=== PATIENT | male | born 1940 | race Caucasian/White ===

== ENCOUNTER → 2018-09-07 | Outpatient (CLI) | payer MEDICARE, BC | LOC: DL.CLIN 11:00 | CPT/HCPCS: 99213 ==

== ENCOUNTER 2018-09-09 09:52 | Day surgery (SDC) | payer MEDICARE, BC ==
[2018-09-09] MEDS ORDERED: Sodium Chloride 0.9% 10 ML Syringe IV ONE (09:53)
[2018-09-09] MEDS ORDERED: Midazolam 1 MG/ML 2 ML SDV IV ONE (09:53)
[2018-09-09] MEDS ORDERED: Dexamethasone 4 MG/ML SDV IV ONE (09:53)
[2018-09-09] MEDS ORDERED: Phenylephrine 10% Ophth Soln 5 ML Bot EYELF ONE (10:23)
[2018-09-09] MEDS ORDERED: Dilation Soln 1 EA EACH EYELF ONE (10:23)
[2018-09-09] MEDS ORDERED: Moxifloxacin 0.5% Ophth Soln 3 ML Bottle EYELF ONE (10:23)
[2018-09-09] MEDS ORDERED: Proparacaine 0.5% Ophth Soln 15 ML Bottle EYELF ONE (10:23)
[2018-09-09] MEDS ORDERED: Povidone-Iodine 5% Sterile Ophth Soln 30 ML Bottle EYELF ONE ×2 (10:23→10:51)
[2018-09-09] MEDS ORDERED: Timolol Maleate 0.5% Ophth Soln 5 ML Bottle EYELF ONE (10:23)
[2018-09-09] MEDS ORDERED: Sodium Chloride 0.9% 10 ML Syringe FLUSH SCH (10:30)
[2018-09-09] MEDS ORDERED: Tetracaine HCl/PF 0.5% 4 ML Bottle EYELF ONE (10:50)
[2018-09-09] MEDS ORDERED: Lidocaine 1% 30 ML SDV ONE (10:50)
[2018-09-09] MEDS ORDERED: Apraclonidine 0.5% Ophth Soln 5 ML Bot EYELF ONE (10:51)
[2018-09-09] MEDS ORDERED: Balanced Salt Solution Ophth Irrig 500 ML Bottle IOCULAR ONE (10:51)
[2018-09-09] MEDS ORDERED: Diclofenac Sodium 0.1% Ophth Soln 5 ML Bottle EYELF ONE (10:51)
[2018-09-09] MEDS ORDERED: Chondroitin Sulfate/Hyaluronate Sodium Ophth Inj 0.75 ML Syringe EYELF ONE (10:51)
[2018-09-09] MEDS ORDERED: Dexamethasone/Neomycin/Polymyxin B Ophth Oint 3.5 GM Tube EYELF ONE (10:51)
[2018-09-09] MEDS ORDERED: Vancomycin 500 MG SDV EYELF ONE (10:52)
--- NOTE | 2018-09-09 13:36 | EKG ---
09/09/2018 - GUERO ABRAMS - This 12-lead EKG shows atrial fibrillation with a controlled ventricular rate of 69. There is poor R-wave progression to the level of V5. No acute ST-T wave changes. There is no previous EKG found in [facility] or [facility]. [facility] /[id number]
--- NOTE | 2018-09-09 15:15 | OR ---
DATE: 09/09/2018 PREOPERATIVE DIAGNOSIS: Visually significant mixed cataract, left eye. POSTOPERATIVE DIAGNOSIS: Visually significant mixed cataract, left eye. PROCEDURE: Extracapsular cataract extraction with intraocular lens implant, left eye. ANESTHESIA: Topical/local MAC. COMPLICATIONS: None. INDICATION: Mr. Olivera was seen in the clinic. He has complained of difficulty judging distances and a slow change in vision in both eyes. 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 I explained options, offered cataract surgery, and I explained risks including the potential for infection, retinal detachment, loss of vision, and need for additional surgery amongst others. He has requested a monofocal implant. He understands that his visual potential will be limited by retinal health. He is symptomatic and motivated to proceed. OPERATIVE DESCRIPTION: After informed consent was obtained and the risks, benefits, and alternatives were explained, the patient was brought to the operative suite and topical anesthesia was administered. The patient was then prepped and draped in the sterile fashion and attention was placed on the left eye. A sterile lid speculum was placed into the left eye to allow operative exposure. A full-thickness paracentesis was made in the temporal portion of the operative eye. Preservative-free lidocaine 0.1 mL was injected into the anterior chamber followed by viscoelastic. A full-thickness corneal incision was then made into the anterior chamber. A bent needle cystotome was used to create a small holly in the anterior capsule. The capsulorrhexis forceps was then used to create a 360-degree curvilinear capsulorrhexis. The nucleus was then removed using a phacoemulsification handpiece and the remaining cortical material was then removed with irrigation and aspiration handpiece. Following removal of the cortical material, the capsular bag was then inspected and noted to be free of any holes or tears. Viscoelastic was then injected into the capsular bag and the intraocular lens was inserted into the capsular bag. The viscoelastic material was then removed from both the anterior and posterior chambers and from behind the IOL. The lens and capsular bag were then reinspected. The IOL was well centered and the capsular bag intact. The wound and paracentesis sites were inspected and hydrated with balanced saline solution. Both were found to be self-sealing. The intraocular pressure was assessed digitally and found to be within normal range. A good red reflex was noted at the completion of the procedure. No complications occurred during the operation. At the completion of the procedure, [employer], Voltaren, and Iopidine drops were placed into the operative eye. A sterile eye shield was placed over the operative eye and the patient was transported to the postoperative recovery area having tolerated the procedure well. Postoperative instructions were given along with a postoperative appointment. The patient was advised to call with any questions or concerns. [facility] /[id number]
== END 2018-09-09 12:00 | disposition home or self-care (01) ==
LOC: DL.SDS 09:52
PROVIDERS: ATTEND Ophthalmology
DX: H26.8 Other specified cataract (principal); F03.90 Unspecified dementia, unspecified severity, without behavioral disturbance, psychotic disturbance, mood disturbance, and anxiety; E78.5 Hyperlipidemia, unspecified; E78.00 Pure hypercholesterolemia, unspecified; J45.909 Unspecified asthma, uncomplicated; I21.9 Acute myocardial infarction, unspecified; Z79.82 Long term (current) use of aspirin; Z79.52 Long term (current) use of systemic steroids; Z79.899 Other long term (current) drug therapy; I48.91 Unspecified atrial fibrillation
CPT/HCPCS: 00142; 66984; 93005; 99213; A9270; J1100; J2001; J2250; J3370; V2632

== ENCOUNTER 2018-10-14 06:45 | Day surgery (SDC) | payer MEDICARE, BC ==
[~2018-10-14 06:45] MED LIST: Proparacaine 0.5% Ophth Soln 15 ML Bottle ONE
[2018-10-14] MEDS ORDERED: Sodium Chloride 0.9% 10 ML Syringe IV ONE (06:46)
[2018-10-14] MEDS ORDERED: Midazolam 1 MG/ML 2 ML SDV IV ONE (06:46)
[2018-10-14] MEDS ORDERED: Dexamethasone 4 MG/ML SDV IV ONE (06:46)
[2018-10-14] MEDS: Proparacaine 0.5% Ophth Soln 15 ML Bottle EYERT ONE (07:22)
[2018-10-14] MEDS: Povidone-Iodine 5% Sterile Ophth Soln 30 ML Bottle EYERT ONE ×2 (07:23→08:13)
[2018-10-14] MEDS: Moxifloxacin 0.5% Ophth Soln 3 ML Bottle EYERT ONE (07:23)
[2018-10-14] MEDS: Phenylephrine 10% Ophth Soln 5 ML Bot EYERT ONE (07:25)
[2018-10-14] MEDS: Timolol Maleate 0.5% Ophth Soln 5 ML Bottle EYERT ONE (07:26)
[2018-10-14] MEDS: Cataract Ophth Solution EYERT ONE (07:27)
[2018-10-14] MEDS: Lidocaine 1% 30 ML SDV ONE (08:09)
[2018-10-14] MEDS: Tetracaine HCl/PF 0.5% 4 ML Bottle EYERT ONE (08:12)
[2018-10-14] MEDS: Apraclonidine 0.5% Ophth Soln 5 ML Bot EYERT ONE (08:15)
[2018-10-14] MEDS: Diclofenac Sodium 0.1% Ophth Soln 5 ML Bottle EYERT ONE (08:16)
[2018-10-14] MEDS: Dexamethasone/Neomycin/Polymyxin B Ophth Oint 3.5 GM Tube EYERT ONE (08:16)
[2018-10-14] MEDS: Balanced Salt Solution Plus Ophth Irrig 500 ML Bottle IOCULAR ONE (08:17)
[2018-10-14] MEDS: Vancomycin 500 MG SDV EYERT ONE (08:17)
[2018-10-14] MEDS: Chondroitin Sulfate/Hyaluronate Sodium Ophth Inj 0.5 ML Syringe EYERT ONE (08:17)
[2018-10-14] MEDS ORDERED: Ondansetron 4 MG/2 ML SDV IVPUSH PRN (08:30)
[2018-10-14] MEDS ORDERED: Phenylephrine 10% Ophth Soln 5 ML Bot EYERT PRN (08:30)
[2018-10-14] MEDS ORDERED: Sodium Chloride 0.9% 10 ML Syringe FLUSH PRN (08:30)
[2018-10-14] MEDS ORDERED: Acetaminophen 325 MG Tab PO PRN (08:30)
--- NOTE | 2018-10-14 11:45 | OR ---
DATE: 10/14/2018 PREOPERATIVE DIAGNOSIS: Visually significant mixed cataract, right eye. POSTOPERATIVE DIAGNOSIS: Visually significant mixed cataract, right eye. PROCEDURE: Extracapsular cataract extraction with intraocular lens implant, right eye. ANESTHESIA: Topical/local MAC. COMPLICATIONS: None. INDICATION: Mr. Olivera was seen in the clinic. He is unhappy with his vision and his examination revealed visually significant mixed cataract. I explained options, offered cataract surgery, and I explained risks including the potential for infection, retinal detachment, loss of vision, need for additional surgery, amongst others. We discussed implant options. He has requested a toric implant. He understands that he may still require glasses for some activities. OPERATIVE DESCRIPTION: After informed consent was obtained and the risks, benefits, and alternatives were explained, the patient was brought to the operative suite and topical anesthesia was administered. The patient was then prepped and draped in the sterile fashion and attention was placed on the right eye. A sterile lid speculum was placed into the right eye to allow operative exposure. A full-thickness paracentesis was made in the temporal portion of the operative eye. Preservative-free lidocaine 0.1 mL was injected into the anterior chamber followed by viscoelastic. A full-thickness corneal incision was then made into the anterior chamber. A bent needle cystotome was used to create a small holly in the anterior capsule. The capsulorrhexis forceps was then used to create a 360-degree curvilinear capsulorrhexis. The nucleus was then removed using a phacoemulsification handpiece and the remaining cortical material was then removed with irrigation and aspiration handpiece. Following removal of the cortical material, the capsular bag was then inspected and noted to be free of any holes or tears. Viscoelastic was then injected into the capsular bag and the intraocular lens was inserted into the capsular bag. The implant was oriented to correspond with preoperative corneal bocanegra made with the patient in the upright position. The viscoelastic material was then removed from both the anterior and posterior chambers and from behind the IOL. The lens and capsular bag were then reinspected. The IOL was well centered and the capsular bag intact. The wound and paracentesis sites were inspected and hydrated with balanced saline solution. Both were found to be self-sealing. The intraocular pressure was assessed digitally and found to be within normal range. A good red reflex was noted at the completion of the procedure. No complications occurred during the operation. At the completion of the procedure, Maxitrol, Voltaren, and Iopidine drops were placed into the operative eye. A sterile eye shield was placed over the operative eye and the patient was transported to the postoperative recovery area having tolerated the procedure well. Postoperative instructions were given along with a postoperative appointment. The patient was advised to call with any questions or concerns. [facility] /[id number]
== END 2018-10-14 09:22 | disposition home or self-care (01) ==
LOC: DL.SDS 06:45
PROVIDERS: ATTEND Ophthalmology
DX: H26.8 Other specified cataract (principal); I25.2 Old myocardial infarction; E78.00 Pure hypercholesterolemia, unspecified; J45.909 Unspecified asthma, uncomplicated; F03.90 Unspecified dementia, unspecified severity, without behavioral disturbance, psychotic disturbance, mood disturbance, and anxiety; R39.12 Poor urinary stream; Z98.42 Cataract extraction status, left eye; Z96.1 Presence of intraocular lens; Z79.51 Long term (current) use of inhaled steroids; Z79.82 Long term (current) use of aspirin; Z79.899 Other long term (current) drug therapy
CPT/HCPCS: A9270-GY; J1100; J2001; J2250; J3370

== ENCOUNTER 2020-11-06 20:46 | Emergency (ER) | payer MEDICARE, BC ==
[2020-11-06] MEDS ORDERED: Sodium Chloride 0.9% 1,000 ML IV ONE (21:29)
--- NOTE | 2020-11-06 22:30 | EDM.PDOC ---
ED HPI GENERAL MEDICAL PROBLEM - General Chief Complaint: Upper Extremity Injury/Pain Stated Complaint: HAS ADVANCED DIMENTIA / FELL TWICE TODAY Time Seen by Provider: 11/06/20 21:15 Source of Information: Reports: Patient, Family, RN, RN Notes Reviewed History Limitations: Reports: Altered Mental Status (Advanced dementia) - History of Present Illness INITIAL COMMENTS - FREE TEXT/NARRATIVE: Patient is an 80-year-old male who presents to ER in a wheelchair with son and . Ambulance was called to the residence as the patient had fallen and could not get up, family unable to get him up. states the patient's got a history of advanced dementia. She states he has had a history of urinary tract infections as well. States the last few days his mobilization has been decreased, weak and shuffling. She feels he has been more confused lately as well. Patient states he was not in bed with her this morning and she could not find him, finding him on the floor next to the bed. He told her that he like to sleep on the floor, states she thinks he fell and could not get up. Tonight the patient fell getting out of his chair, initially was complaining of right shoulder pain and family was unable to get him stood up without having pain. EMS arrived helped get the patient up, and family declined transport and stated they would bring him in by private vehicle. Arrived per private vehicle patient denies any pain anywhere. denies any nausea, vomiting, diarrhea, fevers or chills, chest pains or shortness of breath. Onset: Today - Related Data Allergies Allergy/AdvReac Type Severity Reaction Status Date / Time No Known Allergies Allergy Verified 11/06/20 20:54 Home Meds: Home Meds Aspirin [Ecotrin EC] 81 mg PO DAILY 09/08/18 [History] Fluticasone Propionate [Flonase] 1 spray INH ASDIRECTED 09/08/18 [History] Memantine HCl 10 mg PO BID 09/08/18 [History] Montelukast [Singulair] 10 mg PO DAILY 09/08/18 [History] Multivitamin [Multivitamins] 1 tab PO DAILY 09/08/18 [History] [id number] [Cataract Opthalmic Solution] 1 drop EYEBOTH QID 09/08/18 [History] Past Medical History HEENT History: Reports: Allergic Rhinitis, Cataract Cardiovascular History: Reports: High Cholesterol, Hypertension, DE Respiratory History: Reports: Asthma Gastrointestinal History: Reports: None Genitourinary History: Reports: Prostate Disorder Musculoskeletal History: Reports: Arthritis Neurological History: Reports: Other (See Below) Other Neuro History: DEMENTIA PER H&p Psychiatric History: Reports: None Endocrine/Metabolic History: Reports: None Hematologic History: Reports: None Immunologic History: Reports: None Oncologic (Cancer) History: Reports: None Dermatologic History: Reports: None - Infectious Disease History Other Infectious Disease History: uNKNOWN - Past Surgical History Head Surgeries/Procedures: Reports: None HEENT Surgical History: Reports: None, Cataract Surgery Cardiovascular Surgical History: Reports: None GI Surgical History: Reports: None Social & Family History - Family History Cardiac: Reports: DE, Other (See Below) Other Cardiac Family History: AORTIC ANEURYSM Neurological: Reports: CVA Endocrine/Metabolic: Reports: Diabetes Mellitus, Type 3c Hematologic: Reports: Other (See Below) Other Hematologic Family History: LEUKEMIA Oncologic: Reports: Bone - Tobacco Use Tobacco Use Status *Q: Never Tobacco User Second Hand Smoke Exposure: No - Caffeine Use Caffeine Use: Reports: None Caffeine Use Comment: RARE - Recreational Drug Use Recreational Drug Use: No Review of Systems - Review of Systems Review Of Systems: Comprehensive ROS is negative, except as noted in HPI. ED EXAM, GENERAL - Physical Exam Exam: See Below Exam Limited By: Altered Mental Status General Appearance: Alert, WD/WN, No Apparent Distress Eye Exam: Bilateral Eye: EOMI, Normal Inspection Ears: Normal External Exam, Hearing Grossly Normal Nose: Normal Inspection Throat/Mouth: Normal Inspection, Normal Voice, No Airway Compromise Head: Atraumatic, Normocephalic Neck: Normal Inspection, Limited Range of Motion Respiratory/Chest: No Respiratory Distress, Lungs Clear, Normal Breath Sounds, No Accessory Muscle Use, Chest Non-Tender, Decreased Breath Sounds Cardiovascular: Normal Peripheral Pulses, No Edema, No Gallop, No JVD, No Murmur, No Rub, Irregularly Irregular Peripheral Pulses: 2+: Radial (L), Radial (R) GI/Abdominal: Normal Bowel Sounds, Soft, Non-Tender (Male) Exam: Deferred Rectal (Males) Exam: Deferred Back Exam: Normal Inspection, Decreased Range of Motion Extremities: Normal Inspection, Normal Range of Motion, Non-Tender, No Pedal Edema, Normal Capillary Refill Neurological: Alert, No Motor/Sensory Deficits Psychiatric: Normal Affect, Normal Mood Skin Exam: Warm, Dry, Intact, Normal Color, No Rash Lymphatic: No Adenopathy #1 Interpretation EKG Date: 11/06/20 Time: 22:18 Rhythm: A-Fib Rate (Beats/Min): 85 P-Wave: Variable QRS: Wide ST-T: Normal QT: Normal Comparison: No Change Course - Vital Signs Last Recorded V/S: Last Vital Signs Temp 97.8 F 11/06/20 23:14 Pulse 86 11/06/20 23:14 Resp 16 11/06/20 23:14 BP 118/91 H 11/06/20 23:14 Pulse Ox 95 11/06/20 23:14 - Orders/Labs/Meds Orders: Active Orders 24 hr Category Date Time Status EKG Documentation Completion [RC] STAT Care 11/06/20 21:22 Active Cervical Spine wo Cont [CT] Urgent Exams 11/06/20 21:24 Ordered Head wo Cont [CT] Urgent Exams 11/06/20 21:24 Ordered Shoulder Comp Rt [CR] Urgent Exams 11/06/20 21:23 Taken Labs: Laboratory Tests 11/06/20 11/06/20 11/06/20 Range/Units 21:25 22:00 22:00 WBC 14.0 H (5.0-10.0) 10^3/uL RBC 4.83 (4.6-6.2) 10^6/uL Hgb 15.3 (14.0-18.0) g/dL Hct 45.0 (40.0-54.0) % MCV 93.2 D (80-100) fL MCH 31.7 (27.0-34.0) pg MCHC 34.0 (33.0-35.0) g/dL Plt Count 118 L (150-450) 10^3/uL Neut % (Auto) 45.0 (42.2-75.2) % Lymph % (Auto) 47.8 (20.5-50.1) % [place] % (Auto) 6.2 (2-8) % Eos % (Auto) 0.9 L (1.0-3.0) % Baso % (Auto) 0.1 (0.0-1.0) % PT 11.5 (9.0-12.0) SEC INR 1.1 (0.9-1.2) Sodium 135 L (136-145) mmol/L Potassium 4.2 (3.5-5.1) mmol/L Chloride 99 (98-107) mmol/L Carbon Dioxide 24 (21-32) mmol/L Anion Gap 16.2 H (7-13) mEq/L BUN 22 H (7-18) mg/dL Creatinine 1.33 H (0.70-1.30) mg/dL Est Cr Clr Drug Dosing TNP Estimated GFR (MDRD) 51 BUN/Creatinine Ratio 16.5 (No establ ref range) Glucose 113 H (70-99) mg/dL Calcium 9.1 (8.5-10.1) mg/dL Total Bilirubin 1.9 H (0.2-1.0) mg/dL AST 24 (15-37) U/L ALT 21 (16-63) U/L Alkaline Phosphatase 85 (46-116) U/L Troponin I High Sens 19 (<=76) pg/mL Total Protein 7.4 (6.4-8.2) g/dL Albumin 3.9 (3.4-5.0) g/dL Globulin 3.5 Albumin/Globulin Ratio 1.1 Urine Color (YELLOW) Urine Appearance (CLEAR) Urine pH (5.0-9.0) Ur Specific [place] (1.005-1.030) Urine Protein (NEGATIVE) Urine Glucose (UA) (NEGATIVE) Urine Ketones (NEGATIVE) Urine Occult Blood (NEGATIVE) Urine Nitrite (NEGATIVE) Urine Bilirubin (NEGATIVE) Urine Urobilinogen (0.2-1.0) mg/dL Ur Leukocyte Esterase (NEGATIVE) Urine RBC /HPF Urine WBC (0-5/HPF) /HPF Ur Epithelial Cells (NOT SEEN) /HPF Urine Bacteria (0-FEW/HPF) /HPF Urine Mucus (NOT SEEN) /LPF 11/06/20 Range/Units 23:27 WBC (5.0-10.0) 10^3/uL RBC (4.6-6.2) 10^6/uL Hgb (14.0-18.0) g/dL Hct (40.0-54.0) % MCV (80-100) fL MCH (27.0-34.0) pg MCHC (33.0-35.0) g/dL Plt Count (150-450) 10^3/uL Neut % (Auto) (42.2-75.2) % Lymph % (Auto) (20.5-50.1) % [place] % (Auto) (2-8) % Eos % (Auto) (1.0-3.0) % Baso % (Auto) (0.0-1.0) % PT (9.0-12.0) SEC INR (0.9-1.2) Sodium (136-145) mmol/L Potassium (3.5-5.1) mmol/L Chloride (98-107) mmol/L Carbon Dioxide (21-32) mmol/L Anion Gap (7-13) mEq/L BUN (7-18) mg/dL Creatinine (0.70-1.30) mg/dL Est Cr Clr Drug Dosing Estimated GFR (MDRD) BUN/Creatinine Ratio (No establ ref range) Glucose (70-99) mg/dL Calcium (8.5-10.1) mg/dL Total Bilirubin (0.2-1.0) mg/dL AST (15-37) U/L ALT (16-63) U/L Alkaline Phosphatase (46-116) U/L Troponin I High Sens (<=76) pg/mL Total Protein (6.4-8.2) g/dL Albumin (3.4-5.0) g/dL Globulin Albumin/Globulin Ratio Urine Color Dark yellow (YELLOW) Urine Appearance Slightly cloudy (CLEAR) Urine pH 6.5 (5.0-9.0) Ur Specific [place] >= 1.030 (1.005-1.030) Urine Protein Negative (NEGATIVE) Urine Glucose (UA) Negative (NEGATIVE) Urine Ketones Negative (NEGATIVE) Urine Occult Blood Trace-intact H (NEGATIVE) Urine Nitrite Negative (NEGATIVE) Urine Bilirubin Negative (NEGATIVE) Urine Urobilinogen 0.2 (0.2-1.0) mg/dL Ur Leukocyte Esterase Negative (NEGATIVE) Urine RBC 5-10 H /HPF Urine WBC 10-20 H (0-5/HPF) /HPF Ur Epithelial Cells Moderate H (NOT SEEN) /HPF Urine Bacteria Many H (0-FEW/HPF) /HPF Urine Mucus Many H (NOT SEEN) /LPF Meds: Medications Discontinued Medications Generic Name Dose Route Start Last Admin Trade Name Freq PRN Reason Stop Dose Admin Sodium Chloride 1,000 mls @ 500 mls/hr 11/06/20 21:29 11/06/20 22:10 Normal Saline IV 11/06/20 23:28 500 mls/hr .BOLUS ONE Administration - Radiology Interpretation Free Text/Narrative:: Head CT wo contrast: PROCEDURE INFORMATION: Exam: CT Head Without Contrast Exam date and time: 11/06/2020 9:37 PM Age: 80 years old Clinical indication: Other: Advanced dementia, falls TECHNIQUE: Imaging protocol: Computed tomography of the head without contrast. Radiation optimization: All CT scans at this facility use at least one of these dose optimization techniques: automated exposure control; mA and/or kV adjustment per patient size (includes targeted exams where dose is matched to clinical indication); or iterative reconstr uction. COMPARISON: CT HEAD 09/17/2012 2:05 AM FINDINGS: Brain: Moderate periventricular and subcortical white matter hypoattenuation compatible with chronic small vessel ischemia. Cerebral ventricles: Ventricular enlargement is moderate and increased from comparison in 2013. However, it is fairly commensurate with expansion of other subarachnoid spaces head may be related to volume loss. Paranasal sinuses: Visualized sinuses are unremarkable. No fluid levels. Mastoid air cells: Visualized mastoid air cells are well aerated. Bones/joints: Unremarkable. No acute fracture. Soft tissues: Unremarkable. IMPRESSION: No evidence of acute intracranial pathology. Thank you for allowing us to participate in the care of your patient. Dictated and Authenticated by: Miguel Campbell MD 11/06/2020 11:06 PM Central Time ([place] & [place]) CSpine CT wo contrast: PROCEDURE INFORMATION: Exam: CT Cervical Spine Without Contrast Exam date and time: 11/06/2020 9:37 PM Age: 80 years old Clinical indication: Neck pain; Additional info: Advanced dementia, falls TECHNIQUE: Imaging protocol: Computed tomography images of the cervical spine without contrast. Radiation optimization: All CT scans at this facility use at least one of these dose optimization techniques: automated exposure control; mA and/or kV adjustment per patient size (includes targeted exams where dose is matched to clinical indication); or iterative reconstruction. COMPARISON: CT HEAD 09/17/2012 2:05 AM FINDINGS: Bones/joints: Mild osteopenia. No evidence of fracture. No evidence of malalignment. Discs/Spinal canal/Neural foramina: Mild multilevel degenerative changes are seen. A subtle lucency mid dens is favored to be related to degenerative arthritis at the atlantodental interval. Lungs: Lung apices are normal. Soft tissues: Unremarkable. Other findings: Slight motion artifact on the exam IMPRESSION: No evidence of acute osseous injury. Thank you for allowing us to participate in the care of your patient. Dictated and Authenticated by: Miguel Campbell MD 11/06/2020 11:11 PM Central Time ([place] & [place]) Right shoulder xray: PROCEDURE INFORMATION: Exam: XR Right Shoulder Exam date and time: 11/06/2020 9:50 PM Age: 80 years old Clinical indication: Pain; Shoulder; Right; Additional info: Fall TECHNIQUE: Imaging protocol: XR Right shoulder. Views: 2 or more views. COMPARISON: No relevant prior studies available. FINDINGS: Bones/joints: There is some irregularity and lucency in the inferior glenoid. This may be degenerative, but a nondisplaced fracture is not excluded. No malalignment. Mild degenerative changes in the AC joint. Soft tissues: Normal. IMPRESSION: Mild irregularity and lucency in the inferior glenoid could potentially represent an acute osseous injury. Thank you for allowing us to participate in the care of your patient. Dictated and Authenticated by: Miguel Campbell MD 11/06/2020 11:23 PM Central Time ([place] & [place]) See rad report Departure - Departure Time of Disposition: 23:53 Disposition: Home, Self-Care 01 Condition: Fair Clinical Impression: Glenoid fracture of shoulder Qualifiers: Encounter type: initial encounter Fracture type: closed Laterality: right Qualified Code(s): S42.141A - Displaced fracture of glenoid cavity of scapula, right shoulder, initial encounter for closed fracture Fall at home Qualifiers: Encounter type: initial encounter Qualified Code(s): W19.XXXA - Unspecified fall, initial encounter - Discharge Information *PRESCRIPTION DRUG MONITORING PROGRAM REVIEWED*: No *COPY OF PRESCRIPTION DRUG MONITORING REPORT IN PATIENT CONTRERAS: No Instructions: How To Use a Sling, [id number], Shoulder Pain, [id number] Forms: ED Department Discharge Additional Instructions: Wear sling during the day when up and around Follow-up with orthopedic surgeon, call tomorrow to make an appointment for a possible nondisplaced fracture of the inferior glenoid Return to the ER with any worsening of symptoms Follow up with your primary care provider Sepsis Event Note (ED) - Evaluation Sepsis Screening Result: No Definite Risk - Focused Exam Vital Signs: Vital Signs Temp Pulse Resp BP Pulse Ox 11/06/20 23:14 97.8 F 86 16 118/91 H 95 11/06/20 21:02 97.9 F 97 18 110/69 95 - My Orders Last 24 Hours: My Active Orders 11/06/20 21:22 EKG Documentation Completion [RC] STAT 11/06/20 21:23 Shoulder Comp Rt [CR] Urgent 11/06/20 21:24 Cervical Spine wo Cont [CT] Urgent Head wo Cont [CT] Urgent - Assessment/Plan Last 24 Hours: My Active Orders 11/06/20 21:22 EKG Documentation Completion [RC] STAT 11/06/20 21:23 Shoulder Comp Rt [CR] Urgent 11/06/20 21:24 Cervical Spine wo Cont [CT] Urgent Head wo Cont [CT] Urgent
[2020-11-06 22:31] LABS: ANION GAP 16.2 mEq/L (7-13); CHLORIDE,CL 99 mmol/L (98-107); SODIUM,NA 135 mmol/L (136-145)
--- NOTE | 2020-11-07 11:08 | CT ---
PROCEDURE INFORMATION: Exam: CT Head Without Contrast Exam date and time: 11/06/2020 9:37 PM Age: 80 years old Clinical indication: Other: Advanced dementia, falls TECHNIQUE: Imaging protocol: Computed tomography of the head without contrast. Radiation optimization: All CT scans at this facility use at least one of these dose optimization techniques: automated exposure control; mA and/or kV adjustment per patient size (includes targeted exams where dose is matched to clinical indication); or iterative reconstruction. COMPARISON: CT HEAD 09/17/2012 2:05 AM FINDINGS: Brain: Moderate periventricular and subcortical white matter hypoattenuation compatible with chronic small vessel ischemia. Cerebral ventricles: Ventricular enlargement is moderate and increased from comparison in 2013. However, it is fairly commensurate with expansion of other subarachnoid spaces head may be related to volume loss. Paranasal sinuses: Visualized sinuses are unremarkable. No fluid levels. Mastoid air cells: Visualized mastoid air cells are well aerated. Bones/joints: Unremarkable. No acute fracture. Soft tissues: Unremarkable. IMPRESSION: No evidence of acute intracranial pathology.
--- NOTE | 2020-11-07 11:08 | CR ---
PROCEDURE INFORMATION: Exam: XR Right Shoulder Exam date and time: 11/06/2020 9:50 PM Age: 80 years old Clinical indication: Pain; Shoulder; Right; Additional info: Fall TECHNIQUE: Imaging protocol: XR Right shoulder. Views: 2 or more views. COMPARISON: No relevant prior studies available. FINDINGS: Bones/joints: There is some irregularity and lucency in the inferior glenoid. This may be degenerative, but a nondisplaced fracture is not excluded. No malalignment. Mild degenerative changes in the AC joint. Soft tissues: Normal. IMPRESSION: Mild irregularity and lucency in the inferior glenoid could potentially represent an acute osseous injury.
--- NOTE | 2020-11-07 11:08 | CT ---
PROCEDURE INFORMATION: Exam: CT Cervical Spine Without Contrast Exam date and time: 11/06/2020 9:37 PM Age: 80 years old Clinical indication: Neck pain; Additional info: Advanced dementia, falls TECHNIQUE: Imaging protocol: Computed tomography images of the cervical spine without contrast. Radiation optimization: All CT scans at this facility use at least one of these dose optimization techniques: automated exposure control; mA and/or kV adjustment per patient size (includes targeted exams where dose is matched to clinical indication); or iterative reconstruction. COMPARISON: CT HEAD 09/17/2012 2:05 AM FINDINGS: Bones/joints: Mild osteopenia. No evidence of fracture. No evidence of malalignment. Discs/Spinal canal/Neural foramina: Mild multilevel degenerative changes are seen. A subtle lucency mid dens is favored to be related to degenerative arthritis at the atlantodental interval. Lungs: Lung apices are normal. Soft tissues: Unremarkable. Other findings: Slight motion artifact on the exam IMPRESSION: No evidence of acute osseous injury.
== END 2020-11-07 00:01 | disposition home or self-care (01) ==
LOC: DL.ED 20:46
DX: S42.141A Displaced fracture of glenoid cavity of scapula, right shoulder, initial encounter for closed fracture (principal); I48.91 Unspecified atrial fibrillation; I10 Essential (primary) hypertension; I25.2 Old myocardial infarction; J45.909 Unspecified asthma, uncomplicated; M19.90 Unspecified osteoarthritis, unspecified site; F03.90 Unspecified dementia, unspecified severity, without behavioral disturbance, psychotic disturbance, mood disturbance, and anxiety; Z79.82 Long term (current) use of aspirin; Z79.899 Other long term (current) drug therapy; W07.XXXA Fall from chair, initial encounter
CPT/HCPCS: 36415; 70450; 72125; 73030-RT; 80053; 81001; 84484; 85025; 85610; 93005; 99284-25; J7030

== ENCOUNTER 2021-01-03 07:14 | Emergency (ER) | payer MEDICARE, BC ==
--- NOTE | 2021-01-03 07:36 | EDM.PDOC ---
ED HPI GENERAL MEDICAL PROBLEM - General Stated Complaint: FELL ON BACK OF HEAD Time Seen by Provider: 01/03/21 07:33 Source of Information: Reports: Patient, Family History Limitations: Reports: No Limitations - History of Present Illness INITIAL COMMENTS - FREE TEXT/NARRATIVE: 80 y/o m rolled out of bed this morning and hit his head on the night stand. Pt c/o laceration to the back of head. He is with his who reports pt has dementia and is acting like himself. Denies LINDER, CTLS pain, cp, back pn, db, abd pn, pelvic pn, extremity pn, fever, cough, chills, drugs, etoh. Onset: Today, Sudden Duration: Hour(s): Location: Reports: Head - Related Data Allergies Allergy/AdvReac Type Severity Reaction Status Date / Time No Known Allergies Allergy Verified 11/06/20 20:54 Home Meds: Home Meds Aspirin [Ecotrin EC] 81 mg PO DAILY 09/08/18 [History] Fluticasone Propionate [Flonase] 1 spray INH ASDIRECTED 09/08/18 [History] Memantine HCl 10 mg PO BID 09/08/18 [History] Montelukast [Singulair] 10 mg PO DAILY 09/08/18 [History] Multivitamin [Multivitamins] 1 tab PO DAILY 09/08/18 [History] [id number] [Cataract Opthalmic Solution] 1 drop EYEBOTH QID 09/08/18 [History] Past Medical History HEENT History: Reports: Allergic Rhinitis, Cataract Cardiovascular History: Reports: High Cholesterol, Hypertension, [place] Respiratory History: Reports: Asthma Gastrointestinal History: Reports: None Genitourinary History: Reports: Prostate Disorder Musculoskeletal History: Reports: Arthritis Neurological History: Reports: Other (See Below) Other Neuro History: DEMENTIA PER H&p Psychiatric History: Reports: None Endocrine/Metabolic History: Reports: None Hematologic History: Reports: None Immunologic History: Reports: None Oncologic (Cancer) History: Reports: None Dermatologic History: Reports: None - Infectious Disease History Other Infectious Disease History: uNKNOWN - Past Surgical History Head Surgeries/Procedures: Reports: None HEENT Surgical History: Reports: None, Cataract Surgery Cardiovascular Surgical History: Reports: None GI Surgical History: Reports: None Social & Family History - Family History Cardiac: Reports: [place], Other (See Below) Other Cardiac Family History: AORTIC ANEURYSM Neurological: Reports: CVA Endocrine/Metabolic: Reports: Diabetes Mellitus, Type 3c Hematologic: Reports: Other (See Below) Other Hematologic Family History: LEUKEMIA Oncologic: Reports: Bone - Caffeine Use Caffeine Use: Reports: None Caffeine Use Comment: RARE ED ROS GENERAL - Review of Systems Review Of Systems: Comprehensive ROS is negative, except as noted in HPI. - Physical Exam Exam: See Below Exam Limited By: No Limitations General Appearance: Alert, No Apparent Distress Ears: Normal External Exam, Normal Canal, Hearing Grossly Normal, Normal TMs Nose: Normal Inspection, Normal Mucosa, No Blood Throat/Mouth: Normal Inspection, Normal Lips, Normal Teeth, Normal Gums, Normal Oropharynx, Normal Voice, No Airway Compromise Head Exam: Atraumatic, Normocephalic Neck: Supple, Non-Tender Respiratory/Chest: Lungs Clear, Normal Breath Sounds Cardiovascular: Normal Peripheral Pulses, Regular Rate, Rhythm GI/Abdominal: Soft, Non-Tender Neuro Exam (Abbreviated): Alert Back Exam: Normal Inspection, Full Range of Motion Extremities: Normal Inspection, Normal Range of Motion Psychiatric: Normal Affect, Normal Mood Skin Exam: Warm, Dry, Intact ED LACERATION PROCEDURES - Laceration/Wound Repair Posterior Head Lac/wound length in cm: 6 Appearance: Subcutaneous Anesthetic Type: Local Local Anesthesia - Lidocaine (Xylocaine): 1% Plain Local Anesthetic Volume: 4cc Skin Prep: Saline Exploration/Debridement/Repair: Wound Explored Closed with: [place] # of Sutures: 10 Sterile Dressing Applied: None Tetanus Status Addressed: Yes Complications: No Course - Orders/Labs/Meds Orders: Active Orders 24 hr Category Date Time Status Vaccines to be Administered [RC] PER UNIT ROUTINE Care 01/03/21 07:33 Active Meds: Medications Discontinued Medications Generic Name Dose Route Start Last Admin Trade Name Freq PRN Reason Stop Dose Admin Diphtheria/Tetanus/Acell Pertussis 0.5 ml 01/03/21 07:32 Diphtheria,Pertussis(Acell),Tetanus Vaccine 0.5 Ml Syringe IM 01/03/21 07:33 .ONCE ONE Lidocaine HCl 30 ml 01/03/21 07:31 Lidocaine 1% 30 Ml Sdv INJECT 01/03/21 07:32 ONETIME ONE Departure - Departure Time of Disposition: 08:27 Disposition: Home, Self-Care 01 Condition: Good Clinical Impression: Laceration - Discharge Information *PRESCRIPTION DRUG MONITORING PROGRAM REVIEWED*: Not Applicable *COPY OF PRESCRIPTION DRUG MONITORING REPORT IN PATIENT CONTRERAS: Not Applicable Instructions: Laceration Care, Adult Additional Instructions: Keep wound dry for 24 hours. Use tylenol or motrin for pain as needed. If you develop any new symptoms or concerns contact your primary care facility or return to the ER.
[2021-01-03] MEDS: Diphtheria,Pertussis(Acell),Tetanus Vaccine 0.5 ML Syringe IM ONE (08:00)
[2021-01-03] MEDS: Lidocaine 1% 30 ML SDV INJECT ONE (08:00)
--- NOTE | 2021-01-03 08:02 | CT ---
PROCEDURE INFORMATION: Exam: CT Head Without Contrast Exam date and time: 01/03/2021 7:45 AM Age: 80 years old Clinical indication: Pain; Headache; Other: Head injury posterior; Additional info: Trauma: Fall, head injury TECHNIQUE: Imaging protocol: Computed tomography of the head without contrast. Radiation optimization: All CT scans at this facility use at least one of these dose optimization techniques: automated exposure control; mA and/or kV adjustment per patient size (includes targeted exams where dose is matched to clinical indication); or iterative reconstruction. COMPARISON: CT Head wo Cont 11/06/2020 9:37 PM FINDINGS: Brain: No acute appearing brain parenchymal abnormality. No intracranial hemorrhage. No extraaxial fluid collections. There is diffuse cerebral atrophy. There are white matter low attenuation changes potentially related to chronic small vessel disease. Cerebral ventricles: No hydrocephalus when allowing for the atrophy. Paranasal sinuses: The visualized paranasal sinuses are aerated. Mastoid air cells: The mastoid air cells are aerated. Vasculature: Calcified plaque in both cavernous internal carotid arteries and the V4 segments of both vertebral arteries. Bones/joints: No calvarial fracture. Soft tissues: There is posterior left paramidline superficial soft tissue swelling compatible with a contusion/hematoma given the history. There are gas bubbles in the soft tissue suggesting an associated laceration. Nasal cavity: Prior bilateral medial antrostomies and turbinectomy. IMPRESSION: No intracranial injury or calvarial fracture.
== END 2021-01-03 08:20 | disposition home or self-care (01) ==
LOC: DL.ED 07:14
DX: S01.81XA Laceration without foreign body of other part of head, initial encounter (principal); E11.9 Type 2 diabetes mellitus without complications; I10 Essential (primary) hypertension; I25.2 Old myocardial infarction; Z79.82 Long term (current) use of aspirin; Z23 Encounter for immunization; W22.09XA Striking against other stationary object, initial encounter
CPT/HCPCS: 12002; 70450; 90471; 90715; 99283-25

== ENCOUNTER 2021-11-14 21:17 | Emergency (ER) | payer MEDICARE, BC ==
[2021-11-14 22:04] LABS: CHLORIDE,CL 101 mmol/L (98-107); SODIUM,NA 137 mmol/L (136-145)
[2021-11-14 22:14] LABS: ACETAMINOPHEN 0 ug/mL (10-30 (Therapeutic)); ESTIMATED GFR 45 mL/min (>=60)
== END 2021-11-15 01:27 | disposition home or self-care (01) ==
LOC: DL.ED 21:17
DX: G45.9 Transient cerebral ischemic attack, unspecified (principal); R53.1 Weakness; I10 Essential (primary) hypertension; I25.2 Old myocardial infarction; Z79.899 Other long term (current) drug therapy; Z79.82 Long term (current) use of aspirin; Z20.822 Contact with and (suspected) exposure to COVID-19
CPT/HCPCS: 36415; 70450; 80053; 80143; 80179; 80307; 82140; 82150; 83605; 83690; 83735; 84484; 85025; 87040; 93005; 99285; U0002; 87077; 87186; 93010; 99284

== ENCOUNTER 2022-03-13 11:24 | Inpatient (IN) | payer MEDICARE, BC ==
[2022-03-13] MEDS ORDERED: Atropine 0.4 MG/ML SDV IV PRN (13:43)
[2022-03-13] MEDS ORDERED: Sodium Chloride 0.9% 10 ML Syringe FLUSH PRN (13:46)
[2022-03-13] MEDS ORDERED: LORazepam 0.5 MG Tab PO PRN (13:46)
[2022-03-13] MEDS ORDERED: Morphine 2 MG/ML SYRINGE SUBCUT PRN (13:46)
[2022-03-13] MEDS ORDERED: Metoclopramide 10 MG/2 ML SDV IV PRN (13:46)
[2022-03-13] MEDS ORDERED: LORazepam 1 MG Tab PO PRN ×2 (20:51→21:02)
[2022-03-13] MEDS ORDERED: LORazepam 2 MG/ML SDV IVPUSH PRN (21:10)
[2022-03-13] MEDS: Morphine 2 MG/ML SYRINGE IVPUSH PRN (21:24)
[2022-03-13] MEDS: Sodium Chloride 0.9% 10 ML Syringe FLUSH SCH (21:46)
[2022-03-14] MEDS: Morphine 2 MG/ML SYRINGE IVPUSH PRN ×4 (01:30→18:07)
[2022-03-14] MEDS: Sodium Chloride 0.9% 10 ML Syringe FLUSH SCH (08:38)
== END 2022-03-14 21:15 | disposition expired | DRG 951 ==
LOC: UNDOADMIN 11:24 → DL.MS 11:24
PROVIDERS: ADMIT Internal Medicine; ATTEND Internal Medicine
DX: Z51.5 Encounter for palliative care (principal); H54.7 Unspecified visual loss; J45.909 Unspecified asthma, uncomplicated; I25.2 Old myocardial infarction; E78.5 Hyperlipidemia, unspecified; M19.90 Unspecified osteoarthritis, unspecified site; I10 Essential (primary) hypertension; N42.9 Disorder of prostate, unspecified; R15.9 Full incontinence of feces; R32 Unspecified urinary incontinence; Z66 Do not resuscitate; G30.9 Alzheimer's disease, unspecified; F02.80 Dementia in other diseases classified elsewhere, unspecified severity, without behavioral disturbance, psychotic disturbance, mood disturbance, and anxiety; Z87.891 Personal history of nicotine dependence; Z86.16 Personal history of COVID-19; E13.9 Other specified diabetes mellitus without complications; R62.7 Adult failure to thrive; E86.0 Dehydration
CPT/HCPCS: 99223; 99238; J0461; J2060; J2270; J3490